=== PATIENT | female | born 2005 | race Caucasian/White ===

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

== ENCOUNTER 2025-01-06 17:11 | Emergency (ER) | payer MEDICAID ==
[~2025-01-06] VITALS: Ht 182.9 cm; Wt 137.2 kg
--- NOTE | 2025-01-06 17:37 | ELECTROCARDIOGRAPH REPORT ---
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 Wild Gee Measurements Intervals [place] Rate: 107 P: 37 [place]: 112 QRS: 49 QRSD: 85 T: 35 QT: 320 QTc: 427 Interpretive Statements Sinus tachycardia Electronically Signed On 01-06-2025 18:24:[address] Wild Gee Please click the below link to view image of tracing.
[2025-01-06 18:06] LABS: URINE HCG NEGATIVE (NEG)
--- NOTE | 2025-01-06 18:45 | RADIOLOGY REPORT ---
EXAM: DI CHEST,SINGLE VIEW Indication: CP Technique: Single frontal view of the chest was obtained Comparison: DI CHEST,SINGLE VIEW on DOS: 09/09/24, CT CTA CHEST PE W/ IV CONTRAST on DOS: 08/09/24, DI CH EST,SINGLE VIEW on DOS: 08/09/24, DI CHEST,SINGLE VIEW on DOS: 08/05/24, DI CHEST,SINGLE VIEW on DOS: 07/07 FINDINGS: Lines and Tubes: None Lungs: No focal consolidation. Pleura: No effusion. No pneumothorax. Cardiomediastinal contours: Unremarkable Bones: No acute osseous abnormality. IMPRESSION: No acute cardiopulmonary disease.
--- NOTE | 2025-01-06 19:28 | Physician Documentation ---
History of Present Illness ~ Chief Complaint: Chest Pain Stated Complaint: SOB Primary Medical Doctor: katy florentino [facility] This is a 19-year-old female with a history of anxiety who presents with anxiety, patient reports feeling of shortness of breath and chest pain today. Patient reports history of POTS and seen by data center consultant Dr. Rodriguez. 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 Physical Exam Vital Signs: Temperature: 98.0, Source: Oral, Heart Rate: 105, Respiratory Rate: 18, BP: 127/92, Pulse Oximetry: 95, Weight: 137.200 Physical Exam VITALS: Reviewed and as above. GENERAL: Alert, nontoxic appearing, no apparent distress. HEENT: RESPIRATORY: No increased work of breathing, no respiratory distress, speaking in full clear sentences CHEST: CV: BACK: GI: MUSCULOSKELETAL: SKIN: NEURO: PSYCH: Progress Results/Orders Results/Orders Vital Signs 01/06/25 17:35 Temp 98.0 Pulse 105 Resp 18 B/P (MAP) 127/92 Pulse Ox 95 Laboratory Tests Test 01/06/25 17:42 Urine HCG, Qualitative Negative Medical Decision Making Findings MSE performed in triage and patient returned to ED lobby by nursing staff to await available ED room Departure Referrals: NO PRIMARY CARE PROVIDER (PCP) GUILLERMO LOPEZP Jan 06, 2025 19:28
[2025-01-06 21:34] VITALS: BP 134/96; PULSE 91; RESP 18; TEMP 98; O2SAT 100
== END 2025-01-07 02:28 | disposition left against medical advice (07) ==
LOC: ER 17:11
DX: F41.9 Anxiety disorder, unspecified (principal); R06.02 Shortness of breath; R07.9 Chest pain, unspecified
CPT/HCPCS: 71045; 81025; 93005; 99285

== ENCOUNTER 2025-01-24 21:39 | Emergency (ER) | payer MEDICAID ==
[~2025-01-24] VITALS: Ht 182.9 cm; Wt 115.0 kg
[2025-01-24 21:47] VITALS: BP 149/92; PULSE 105; RESP 18; O2SAT 100
--- NOTE | 2025-01-24 23:31 | Physician Documentation ---
History of Present Illness ~ Chief Complaint: Anxiety Stated Complaint: SOB Time Seen by MD: 22:19 Primary Medical Doctor: katy florentino Source: patient Mode of Arrival: POV Exam Limitations: no limitations HPI Patient presents secondary to feeling short of breath. She states she feels like she can not get a complete breath and has to breathe deep more frequently than usual. She has a history tachycardia and anxiety. She takes propranolol and BuSpar. No chest pain or pressure. No dizziness, lightheadedness or syncope. No sick contacts. No fevers or chills. Was asked, but otherwise denies review of systems. 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 Physical Exam Vital Signs: RN Vital Signs have been reviewed: Yes, Temperature: 97.0, Heart Rate: 105, Respiratory Rate: 18, BP: 149/92, Pulse Oximetry: 100, Weight: 115.000 Pulse Oximetry Reflects: adequate oxygenation Physical Exam General: Awake, alert, oriented. No apparent distress Oropharynx: Without erythema, swelling, cobblestoning. No cervical lymphadenopathy. Respiratory: Lungs are clear to auscultation bilaterally. No respiratory distress. Chest: Normal shape and size. No accessory muscle use. Cardiovascular: Regular rate and rhythm. S1-S2. No murmur, gallop, rub. Psychiatric: Normal mood and affect. Skin: Normal color. Warm and dry. Progress Results/Orders Results/Orders Vital Signs 01/24/25 01/24/25 21:47 23:35 Temp 97.0 97.0 Pulse 105 Resp 18 B/P (MAP) 149/92 Pulse Ox 100 Medical Decision Making Findings Patient presented secondary to feeling like she needs to take a deep breath more frequently. History of tachycardia questionable inappropriate sinus tachycardia followed by Dr. Rodriguez. Also has history of anxiety. Takes propranolol and BuSpar at home. She is well appearing. No SOB/difficulty breathing. She has resting comfortably in bed at time of the evaluation. Speaking in full sentences. Her vital signs are stable. She denies fevers, chills, chest pain or pressure. No dizziness, lightheadedness or syncope. Low clinical suspicion for acute intrathoracic abnormalities including ACS, pneumonia, PE, aortic dissection. Reassurance was provided. She will follow up with primary care provider with regards to her chronic anxiety. Differential Dx:Considerations: Include: Anxiety, Bipolar disorder, Depression, Panic disorder Departure Time of Disposition: 23:29 Disposition: HOME / SELF CARE / HOMELESS Impression: Primary Impression: Anxiety Condition: Stable Additional Instructions: As we discussed there is no indication as pulmonary etiology for your feeling like he needs to take a deep breath more frequently. I listen to your lungs in the are clear. There is no evidence of a viral infection as well. Recommend that you go home and rest. You may consider taking an additional propranolol tonight which may help with anxiety symptoms. Recommend that you follow up with your primary care provider next week. Please return for any new or worsening symptoms. Referrals: NO PRIMARY CARE PROVIDER (PCP) Education Educated: Patient Educated regarding: diagnosis, treatment, need for follow up Signature Scribe Signature: No scribe Attestation: The note accurately reflects work and decisions made by me.eZna Phillip NP 01/25/25 09:42 This note was created with the assistance of voice recognition software whereby errors in grammar, syntax, and/or spelling may have occurred despite active proofreading efforts by the author. Please do not hesitate to contact the provider for clarification or for questions regarding the content of this document. ZENA GONZALEZ NP Jan 24, 2025 23:31
[2025-01-24 23:35] VITALS: TEMP 97
== END 2025-01-24 23:38 | disposition home or self-care (01) ==
LOC: ER 21:40
DX: F41.9 Anxiety disorder, unspecified (principal); F17.290 Nicotine dependence, other tobacco product, uncomplicated; Z87.440 Personal history of urinary (tract) infections
CPT/HCPCS: 99282; 99283